=== PATIENT | male | born 1970 ===

== ENCOUNTER 2019-07-06 10:13 | Emergency (ER) | payer OTHER ==
[~2019-07-06] VITALS: Ht 180.3 cm; Wt 142.9 kg
[~2019-07-06 10:13] MED LIST: ALBU3IS INH; ALBU90OI61 INH; ATOR40TA PO; FLONASE ALLERG9.9 ML; FURO40 PO; Flovent Diskus50 MCG IH; IBUP800 PO; LOSA25 PO; MELO7.5 PO; MONT10T PO; NEOPOLHCSU LEFTEAR
[2019-07-06] MEDS ORDERED: CIPHYDOTSU LEFTEAR (12:24)
[2019-07-06] MEDS ORDERED: Bactrim Ds Tab1 EACH PO (12:24)
[2019-07-06] MEDS ORDERED: TIZA4 PO (12:24)
[2019-07-06] MEDS ORDERED: ATORVASTATIN CA40 MG PO (12:35)
[2019-07-06] MEDS ORDERED: LOSARTAN-HCTZ1 EAC2 PO (12:35)
[2019-07-06] MEDS ORDERED: Lasix40 MG PO (12:35)
[2019-07-06] MEDS ORDERED: METF500 PO (12:36)
[2019-07-06] MEDS ORDERED: SYNTHROID100 MC2 (12:36)
== END 2019-07-06 12:34 | disposition home or self-care (01) ==
LOC: ER 10:13
DX: H61.22 Impacted cerumen, left ear (principal); H62.42 Otitis externa in other diseases classified elsewhere, left ear; H66.92 Otitis media, unspecified, left ear; R25.2 Cramp and spasm; I10 Essential (primary) hypertension; Z87.891 Personal history of nicotine dependence; Z79.899 Other long term (current) drug therapy
CPT/HCPCS: 69210; 99283-25

== ENCOUNTER 2021-03-30 16:27 | Emergency (ER) | payer OTHER ==
[~2021-03-30] VITALS: Ht 177.8 cm; Wt 136.1 kg
[~2021-03-30 16:27] MED LIST changes: +ATORVASTATIN CA40 MG PO; +Bactrim Ds Tab1 EACH PO; +CIPHYDOTSU LEFTEAR; +LOSARTAN-HCTZ1 EAC2 PO; +Lasix40 MG PO; +METF500 PO; +SYNTHROID100 MC2; +TIZA4 PO
[2021-03-30] MEDS ORDERED: PSEUDOEPHEDRINE30 M1 PO (17:19)
== END 2021-03-30 18:09 | disposition home or self-care (01) ==
LOC: ER 16:27
DX: H61.21 Impacted cerumen, right ear (principal); I10 Essential (primary) hypertension; E11.9 Type 2 diabetes mellitus without complications; Z88.0 Allergy status to penicillin; Z88.8 Allergy status to other drugs, medicaments and biological substances; Z79.899 Other long term (current) drug therapy; Z87.891 Personal history of nicotine dependence
CPT/HCPCS: 69209; 99282-25; A9270

== ENCOUNTER 2023-09-06 11:13 | Emergency (ER) | payer OTHER ==
[~2023-09-06] VITALS: Ht 177.8 cm; Wt 176.9 kg
[~2023-09-06 11:13] MED LIST changes: +PSEUDOEPHEDRINE30 M1 PO
[2023-09-06 11:23] VITALS: BP 183/99
[2023-09-06] MEDS ORDERED: XARELTO15 MG PO (14:33)
== END 2023-09-06 14:41 | disposition home or self-care (01) ==
LOC: ER 11:13
DX: I82.432 Acute embolism and thrombosis of left popliteal vein (principal); Z88.0 Allergy status to penicillin; Z88.8 Allergy status to other drugs, medicaments and biological substances; Z79.899 Other long term (current) drug therapy; Z79.84 Long term (current) use of oral hypoglycemic drugs; I10 Essential (primary) hypertension
CPT/HCPCS: 93971; 96372; 99284-25; J1885